=== PATIENT | female | born 1970 ===

== ENCOUNTER 2018-11-09 13:11 | Emergency (ER) | payer SELFPAY ==
[~2018-11-09] VITALS: Ht 154.9 cm; Wt 83.9 kg
--- NOTE | 2018-11-09 13:28 | NUR ---
Pt arrival to room ambulatory with female friend. Pt does not speak Croatian. Limited conversation with friend as translation appears impaired in understanding questions. Dr Goodwin notified limited understanding and beginning to seek a sewing machines salesperson via phone line. Dr Goodwin to room. Utilized translation via phone [phone] to get limited facts/hx. Pt has Left breast throbbing pain with inflammation and sent from clinic here." Pt denies her medical hx and reveals a couple incisions on her abd like a laproscopic bandaid size and then lower abd large vertical incision. Pt reports to Dr willis nod to appendectomy and nods head to hernia surgery after numerous abd surgeries suggested. An exam with RN present reveals firmness/nodular area left outer breast and node palpable L axilla region. Friend continues to use choppy Croatian and state no papers sent, searched on phone for [place] location as told to come here. The translation line disconnected.
[2018-11-09] MEDS ORDERED: NS IV 1000 ML 1,000 ML IV SCH (13:54)
--- NOTE | 2018-11-09 13:55 | NUR ---
Connected with Translation line: Asked a translation of where the clinic was located they were seen at. Pt and friend are from [place], [place]. Asked if the clinic said to go have a test or xray that they have arranged? Their communication is very limited.
--- NOTE | 2018-11-09 13:58 | ED Chest Pain ---
General Stated Complaint: LT BREAST PAIN Source: patient, other Exam Limitations: language barrier History of Present Illness Date Seen by Provider: Nov 09, 2018 Time Seen by Provider: 13:38 Initial Comments The patient presents to ER by private conveyance with her significant other and chief complaint that for 2 weeks now she's had left breast lump and pain that has radiated under her armpit. She also has some swelling in her left arm. She has no history of heart disease or any medical problems. She does not follow with a doctor. Never had a mammogram. No significant familial history for cancer. No weight loss but she did have some subjective fevers and chills the last couple days. She's been using Tylenol for pain with modest relief. She saw a clinic today but she's not sure where it sat and they recommended she come to the ER for workup since she was having chest pain. She has no nipple discharge, amenorrhea, dysmenorrhea. She is a history of appendectomy and ventral hernia repair but no other surgeries. No nausea vomiting diarrhea. The patient reports the pain is usually about 4-6 out of 10 but will spike up to an 8 out of 10 at times. It is not worse with movement but is worse with palpation. No history of hidradenitis separative up, abscesses or drainage. .The patient reports she lives in [place], [place]. Allergies and Home Medications Allergies Coded Allergies: No Known Drug Allergies (Unverified , 11/09/18) Patient Home Medication List Home Medication List Reviewed: Yes Review of Systems Review of Systems Constitutional: No chills; fever, malaise EENTM: No Blurred Vision, No Double Vision Respiratory: Denies Cough, Denies Shortness of Air Cardiovascular: See HPI; Denies Lightheadedness Gastrointestinal: Denies Constipated, Denies Diarrhea, Denies Nausea Genitourinary: Denies Discharge, Denies Drainage Musculoskeletal: No back pain, No joint swelling Skin: No pruritus, No rash Physical Exam Vital Signs Capillary Refill : Height, Weight, BMI Height: '" Weight: lbs. oz. kg; BMI Method: General Appearance: WD/WN, Anxious HEENT: PERRL/EOMI, Pharynx Normal, Moist Mucous Membranes Neck: Full Range of Motion, Normal Inspection Respiratory: Lungs Clear, Normal Breath Sounds, No Accessory Muscle Use, No Respiratory Distress Cardiovascular: Regular Rate, Rhythm, No Edema, Normal Peripheral Pulses Extremity: Normal Capillary Refill, Normal Inspection, No Pedal Edema Neurologic/Psychiatric: Alert, Oriented x3, No Motor/Sensory Deficits Lymphatic: Axilla Node Tender (L) (large, soft, mobile mass in the left axilla midaxillary line approximately 5 cm diameter of swelling) Other comments Right breast without mass tenderness dimpling distortion or nipple discharge. Left breast with no difficulty discharge, erythema but there is a firm slightly mobile mass at the 4:00 position approximately 4 cm diameter at the greatest with that is tender to palpation. Progress/Results/Core Measures Results/Orders My Orders Orders - BELLE SAENZ Ct Chest W (11/09/18 13:54) Cbc With Automated Diff (11/09/18 13:54) Comprehensive Metabolic Panel (11/09/18 13:54) Hcg,Qualitative Serum (11/09/18 13:54) Ua Culture If Indicated (11/09/18 13:54) Ns Iv 1000 Ml (Sodium Chloride 0.9%) (11/09/18 13:54) Iohexol Injection (Omnipaque 350 Mg/Ml 1 (11/09/18 14:15) Received Contrast (Hold Metformin- Contr (11/09/18 14:15) Sodium Chloride Flush (Catheter Flush Sy (11/09/18 14:15) Ns (Ivpb) (Sodium Chloride 0.9% Ivpb Bag (11/09/18 14:15) Progress Progress Note : Time: 14:03 Progress Note Concerning, tender mass in the left breast with what is probably reactive lymph nodes versus possible lymphatic spread of a malignancy. She has declined anything for pain at this time. Further clarification with the patient didn't discharge the patient was seen at [facility] urgent care today and was sent here to have some imaging studies done and was postictal come back to the clinic at 2:00 PM. I do not believe the patient was admitted to check into the ER rather I think the patient was to come up. The [facility] where they have mammogram capability and get worked up so were going to try and coordinate that with [facility] mammography. Diagnostic Imaging Diagonstic Imaging: CT (with IV contrast) Plain Films/CT/US/NM/MRI: chest Reviewed: Reviewed by Me Departure Impression Primary Impression: Left breast mass Disposition: 01 HOME, SELF-CARE Condition: Stable Departure-Patient Inst. Decision time for Depature: 14:11 Referrals: NO,LOCAL PHYSICIAN (PCP/Family) Primary Care Physician Patient Instructions: Mammography Add. Discharge Instructions: Proceed to mammography to have your breast imaged and then return to the clinic per instructions. BELLE SAENZ Nov 09, 2018 13:58
--- NOTE | 2018-11-09 14:10 | NUR ---
Responses from gore inserter reports pt seen at [facility] and was told to come to same in [place]. Pt reporting must be at the clinic at 1400 after here at [place]. Staff communicated with mammography of [facility] here in [place] and they were asked about any OP requisitions from [facility]. Mammo staff state awaiting a stat mammo pt that will return to clinic after test. In review, ER staff informing Dr that pt is scheduled as an OP Fadi at [facility]. reports it is appropriate he will discharge patient as that is the appropriate test needed of current breast condition.
[2018-11-09 14:15] VITALS: BP 128/61
[2018-11-09] MEDS ORDERED: IOHEXOL 350 MG/ML 100 ML (OMNIPAQUE 350) VIAL IV ONE (14:15)
[2018-11-09] MEDS ORDERED: NS 100 ML (IVPB) BAG IV ONE (14:15)
[2018-11-09] MEDS ORDERED: HOLD METFORMIN - RECEIVED CONTRAST 20 ML VIAL IV SCH (14:15)
[2018-11-09] MEDS ORDERED: CATHETER FLUSH 10 ML SYR IV PRN (14:15)
--- NOTE | 2018-11-09 14:15 | NUR ---
Pt discharged at this time with staff assisting them to arrive to registration desk at [facility] here in same building. Pt and her friend have very limited understandstanding of the difference of the [facility] clinic and the ER depart of [facility] [address]. Pt encouraged to return post test to clinic in [place] the same as earlier today and get further directions of care plan. Both seem to understand this instruction.
== END 2018-11-09 14:15 | disposition home or self-care (01) ==
LOC: ER FS 13:16
DX: N63.20 Unspecified lump in the left breast, unspecified quadrant (principal)
CPT/HCPCS: 99281